=== PATIENT | male | born 2000 | race Caucasian/White ===

== ENCOUNTER 2021-12-06 17:39 | Emergency (ER) | payer BC, SELFPAY ==
[2021-12-06 17:41] VITALS: PULSE 78; RESP 18; O2SAT 100
--- NOTE | 2021-12-06 17:43 | ED_ITS ---
HPI - Allergic Reaction General Chief complaint: Allergic Reaction Stated complaint: allergic reaction Time Seen by Provider: 12/06/21 17:39 History of Present Illness HPI narrative: 21-year-old male in no distress presents emergency room complaining of allergic reaction. Patient states he is allergic to peanuts, and had some [place] food at a wedding reception specialist or he was exposed to the penis. Patient is complaining of a tingling sensation on his lower lip. Denies shortness of breath or difficulty breathing. Denies rash or pruritus Related Data Allergies Allergy/AdvReac Type Severity Reaction Status Date / Time egg Allergy Rash Verified 12/06/21 17:45 peanut Allergy Swelling Verified 12/06/21 17:45 Review of Systems Review of Systems: CONSTITUTIONAL: Denies fever, chills, or sweats. EYES: Denies visual changes, redness, or discharge. ENT: Denies rhinorrhea, congestion, sore throat, or otalgia. CARDIOVASCULAR: Denies chest pain, palpitations, or edema. RESPIRATORY: Denies cough or dyspnea. GASTROINTESTINAL: Denies abdominal pain, nausea, vomiting, or diarrhea. GENITOURINARY: Denies dysuria or hematuria. SKIN: Denies rash or itching. MUSCULOSKELETAL: Denies back pain, joint pain, or myalgia. NEUROLOGIC: Denies headache, numbness, dizziness, or weakness. PSYCHIATRIC: Denies anxiety or depression. Exam Narrative: GENERAL: Well-appearing, well-nourished, and in no acute distress. HEAD: Normocephalic, atraumatic. EYES: PERRLA and EOMI. ENT: Nares clear, no rhinorrhea or epistaxis. Mucous membranes moist. NECK: Supple. No adenopathy or masses. CHEST: Clear to auscultation. No respiratory distress. No wheezes rales or rhonchi HEART: Regular rate and rhythm. No murmur heard. Normal peripheral pulses. ABDOMEN: Soft, nontender, nondistended, normal active bowel sounds. EXTREMITIES: Normal range of motion. No edema. SKIN: Warm, dry, no rash. NEURO: No focal deficits. Alert and oriented x3. PSYCH: Normal mood and affect. MDM - Allergic Reaction MDM Narrative Medical decision making narrative: 21-year-old male presented to the emergency room with complaints of allergic reaction after being exposed to peanuts. Patient was given Benadryl, Pepcid, and Solu-Medrol. Patient responded well. States symptoms have resolved. Differential Diagnosis Differential diagnosis: Likely allergic reaction Medical Records Attestation: I reviewed the patient's medical records. Discharge Plan Discharge Clinical Impression: Allergic reaction Qualifiers: Encounter type: initial encounter Qualified Code(s): T78.40XA - Allergy, unspecified, initial encounter Patient Disposition: Home, Self-Care Condition: Stable Instructions: Antibiotic Form, Food Allergy (ED) Additional Instructions: Recommend taking Benadryl at night for itching. May substitute Zyrtec or Camilla during the day. Also recommend taking a daily Pepcid for the next 5 to 7 days. Return the emergency room if symptoms continue. Otherwise follow-up with your primary care physician as needed Prescriptions: New prednisone 20 mg tablet 40 mg PO DAILY Qty: 10 RF: 0 Follow-up/Referrals: PHYSICIAN NOT ON STAFF,NONSTAFF [Primary Care Provider] - Time of Disposition: 18:16
[2021-12-06] MEDS: FAMOTIDINE 20 MG/2 ML VIAL IV PUSH (17:46)
[2021-12-06] MEDS: methylPREDNISolone SOD SUCC 125 MG VIAL IV PUSH (17:46)
[2021-12-06] MEDS: diphenhydrAMINE HCl INJ 50 MG/ML VIAL IV PUSH (17:46)
[2021-12-06] MEDS: SODIUM CHLORIDE 0.9% IV 1,000 ML 999 ML IV CONT (17:49)
[2021-12-06 18:31] VITALS: BP 137/79; PULSE 80; RESP 18; O2SAT 98
== END 2021-12-06 18:38 | disposition home or self-care (01) ==
PROVIDERS: Emergency Provider Nurse Practitioner Family
DX: T78.1XXA Other adverse food reactions, not elsewhere classified, initial encounter (principal); R20.2 Paresthesia of skin; Z91.010 Allergy to peanuts
CPT/HCPCS: 96361; 96374; 96375; 99284; J1200; J2930; J7030